=== PATIENT | male | born 1985 | race Hispanic/Latino ===

== ENCOUNTER 2018-05-19 18:47 | Emergency (ER) | payer SELFPAY | END 2018-05-19 21:44 | disposition left against medical advice (07) | LOC: ED 18:47 | DX: Z02.89 Encounter for other administrative examinations (principal); Z00.00 Encounter for general adult medical examination without abnormal findings ==

== ENCOUNTER 2018-05-19 19:14 | Emergency (ER) | payer SELFPAY | END 2018-05-19 19:19 | disposition left against medical advice (07) | LOC: EDSEX → ED 19:14 | DX: Z02.89 Encounter for other administrative examinations (principal); Z00.00 Encounter for general adult medical examination without abnormal findings ==

== ENCOUNTER 2018-05-19 19:17 | Emergency (ER) | payer SELFPAY ==
[2018-05-19 19:21] VITALS: RESP 18; BMI 23.3
[2018-05-19] MEDS ORDERED: oxyCODONE 10 mg Immediate Release Tab PO STA (19:39)
--- NOTE | 2018-05-19 20:07 | ED PDOC ---
Arrival/HPI - General Chief Complaint: Med Refill Time Seen by Provider: 05/19/18 19:25 Historian: Patient - History of Present Illness Narrative History of Present Illness (Text): 05/19/18 20:03 A 33 year old male, whose past medical history includes chronic back pain, presents to the emergency department with a complaint of back pain and a request to fill his medications. The patient reports that he is normally on 20 mg of oxycodone. He states that his PMD recently retired and his new PMD prescribed him a 30 day supply at the end of March. He states that he ran out of his medication 2 days ago. He states that he has an appointment with a pain management physician June 14. The patient denies fevers, chills, headache, dizziness, chest pain, shortness of breath, dyspnea on exertion, cough, abdominal pain, nausea, vomiting, diarrhea, neck pain, urinary/bowel changes, or any other complaint. Time/Duration: Other Symptom Onset: Sudden Symptom Course: Unchanged Activities at Onset: Rest, Light Context: Home Past Medical History - Provider Review Nursing Documentation Reviewed: Yes - Musculoskeletal/Rheumatological Hx Back Pain: Yes - Psychiatric Hx Substance Use: No - Surgical History Other/Comment: laser spine surgery - Anesthesia Hx Anesthesia: No Hx Anesthesia Reactions: No Family/Social History - Physician Review Nursing Documentation Reviewed: Yes Family/Social History: No Known Family HX Smoking Status: Unknown If Ever Smoked Hx Alcohol Use: No Hx Substance Use: No Allergies/Home Meds Allergies/Adverse Reactions: Allergies No Known Allergies Allergy (Verified 05/19/18 19:21) Review of Systems - Physician Review All systems were reviewed & negative as marked: Yes - Review of Systems Constitutional: absent: Fevers Respiratory: absent: SOB, Cough Cardiovascular: absent: Chest Pain, SCHNEIDER Gastrointestinal: absent: Abdominal Pain, Diarrhea, Nausea, Vomiting Genitourinary Male: absent: Urinary Output Changes Musculoskeletal: Back Pain. absent: Neck Pain Neurological: absent: Headache, Dizziness Physical Exam Vital Signs Reviewed: Yes Vital Signs Temp Pulse Resp BP Pulse Ox 05/19/18 19:20 98.5 F 82 18 155/95 H 99 Temperature: Afebrile Blood Pressure: Hypertensive Pulse: Regular Respiratory Rate: Normal Appearance: Positive for: Well-Appearing, Non-Toxic, Comfortable Pain Distress: None Mental Status: Positive for: Alert and Oriented X 3 Medical Decision Making ED Course and Treatment: 05/19/18 20:08 Impression: A 33 year old male presents to the emergency department with a complaint of back pain and requesting refill to his oxycodone. Plan: -- oxyCODONE -- Reassess and disposition Progress Notes: 05/19/18 20:10 Patient is in no acute distress. I have discussed the plan with the patient, who expresses understanding. Patient in agreement with plan to be discharged home. Patient is stable for discharge. Patient was instructed to follow up with physician or return if symptoms worsen or new concerning symptoms arise. Rx written for a small amount of home dose of oxycodone. [facility] records requested and reviewed, last Rx filled was on 04/19 for oxycodone 20mg 150 tabs, 30 day supply. Patient states that he finished his last tab two days ago. - Medication Orders Current Medication Orders: Discontinued Medications Oxycodone HCl (Oxycodone Immediate Release Tab) 20 mg PO STAT STA Stop: 05/19/18 19:40 - Scribe Statement The provider has reviewed the documentation as recorded by the Kelvin Alvares Provider Scribe Attestation: All medical record entries made by the Scribe were at my direction and personally dictated by me. I have reviewed the chart and agree that the record accurately reflects my personal performance of the history, physical exam, medical decision making, and the department course for this patient. I have also personally directed, reviewed, and agree with the discharge instructions and disposition. Disposition/Present on Arrival - Present on Arrival Any Indicators Present on Arrival: No History of DVT/PE: No History of Uncontrolled Diabetes: No Urinary Catheter: No History of Decub. Ulcer: No History Surgical Site Infection Following: None - Disposition Have Diagnosis and Disposition been Completed?: Yes Diagnosis: Medication refill Disposition: HOME/ ROUTINE Disposition Time: 19:57 Condition: STABLE Discharge Instructions (ExitCare): Taking Narcotics Safely Additional Instructions: SOFIA MENDOSA, thank you for letting us take care of you today. Your provider was Liliam Garcia MD and you were treated for WITHDRAWL FROM MEDS. The emergency medical care you received today was directed at your acute symptoms. If you were prescribed any medication, please fill it and take as directed. It may take several days for your symptoms to resolve. Return to the Emergency Department if your symptoms worsen, do not improve, or if you have any other problems. Please contact your doctor or call one of the physicians/clinics you have been referred to that are listed on the Patient Visit Information form that is included in your discharge packet. Bring any paperwork you were given at discharge with you along with any medications you are taking to your follow up visit. Our treatment cannot replace ongoing medical care by a primary care provider outside of the emergency department. Thank you for allowing the [facility] team to be part of your care today. If you had an X-Ray or CT scan: A Radiologist will review the ED reading if any change in treatment is needed we will contact you. If you had a blood, urine, or wound culture: It will take several days for the results, if any change in treatment is needed we will contact you. If you had an STI test: It will take 48 hours for the results. Please call after 1 week if you have not heard back. Prescriptions: RX: oxyCODONE [oxyCODONE Immediate Release Tab] 20 mg PO Q6H #6 tab Forms: [email or web address] (Lithuanian)
[2018-05-19 20:34] VITALS: BP 148/89; PULSE 85; TEMP 98.2; O2SAT 100
== END 2018-05-19 20:35 | disposition home or self-care (01) ==
LOC: ED 19:17 → MERGE 19:17 → ED 20:35
DX: Z76.0 Encounter for issue of repeat prescription (principal); M54.9 Dorsalgia, unspecified

== ENCOUNTER 2018-06-07 13:20 | Emergency (ER) | payer OTHER ==
[2018-06-07 13:40] VITALS: BMI 22.9
[2018-06-07 13:45] VITALS: RESP 18; TEMP 98.3; O2SAT 97
--- NOTE | 2018-06-07 14:40 | ED PDOC ---
Arrival/HPI - General Historian: Patient - Critical Care Narrative Critical Care (Text): 06/07/18 14:44 33 year old male with chronic back pain with radiculopathy on the right lower extremity, s/p spine surgery in 2016 and opiod dependent presents to the emergency department with persistent back pain and withrwawal symptoms of opiods after he ran out of meds last week. Patient reports diarrhea, muscle aches, insomnia, dysmorphic mood for the past few days. He reports no change in his pain pattern, still sharp, shooting to his right leg above ankle level, worsens with prolonged sitting/standing. Patient has tried NSAID in the past but failed to control hi bart. He is scheduled to see waste/materials exchange specialist on 06/14 but because of severity of pain and withdrawal symptoms, he decided to come to the emergency department . He denied fever, chills, abdominal pain, visual changes, focal neurologic symptoms, loss of sensation, chest pain, palpitation. - History of Present Illness Time/Duration: > week Symptom Onset: Gradual Symptom Course: Intermittent Quality: Throbbing Severity Level: 9 Context: Sitting, Walking, Exertion <Mihir Hodges - Last Filed: 06/07/18 14:56> <Mariia Tamayo - Last Filed: 06/22/18 10:45> - General Chief Complaint: Med Refill Time Seen by Provider: 06/07/18 14:04 Past Medical History - Provider Review Nursing Documentation Reviewed: Yes - Infectious Disease Hx of Infectious Diseases: None - Musculoskeletal/Rheumatological Hx Back Pain: Yes Other/Comment: chronic back & leg pain - Psychiatric Hx Substance Use: No - Surgical History Hx Orthopedic Surgery: Yes (Back surgery in 2016) Other/Comment: laser spine surgery - Anesthesia Hx Anesthesia: Yes Hx Anesthesia Reactions: No <Mihir Hodges - Last Filed: 06/07/18 14:56> Family/Social History - Physician Review Nursing Documentation Reviewed: Yes Smoking Status: Unknown If Ever Smoked Hx Alcohol Use: No Hx Substance Use: No <Mihir Hodges - Last Filed: 06/07/18 14:56> Family/Social History: Unknown Family HX <Mariia Tamayo - Last Filed: 06/22/18 10:45> Allergies/Home Meds <Mihir Hodges - Last Filed: 06/07/18 14:56> <Mariia Tamayo - Last Filed: 06/22/18 10:45> Allergies/Adverse Reactions: Allergies No Known Allergies Allergy (Verified 05/22/18 08:39) Review of Systems - Review of Systems Constitutional: Normal Eyes: Normal ENT: Normal Respiratory: Normal Cardiovascular: Normal Gastrointestinal: Diarrhea Genitourinary Male: Normal Musculoskeletal: Back Pain, Myalgias Skin: Normal Neurological: Normal Endocrine: Normal Hemo/Lymphatic: Normal Psychiatric: Normal <TracieMihir - Last Filed: 06/07/18 14:56> Physical Exam Vital Signs Reviewed: Yes Vital Signs Temp Pulse Resp BP Pulse Ox 06/07/18 13:44 98.3 F 75 18 139/87 97 Temperature: Afebrile Blood Pressure: Normal Pulse: Regular Respiratory Rate: Normal Appearance: Positive for: Well-Appearing, Non-Toxic, Comfortable Pain Distress: Moderate Mental Status: Positive for: Alert and Oriented X 3 - Systems Exam Head: Present: Atraumatic, Normocephalic Pupils: Present: PERRL Extroacular Muscles: Present: EOMI Conjunctiva: Present: Normal Mouth: Present: Moist Mucous Membranes Pharnyx: Present: Normal Nose (External): Present: Atraumatic Neck: Present: Normal Range of Motion Respiratory/Chest: Present: Clear to Auscultation, Good Air Exchange Cardiovascular: Present: Regular Rate and Rhythm, Normal S1, S2. No: Rub, Gallop Abdomen: Present: Normal Bowel Sounds. No: Tenderness, Distention, Guarding Back: Present: Normal Inspection Upper Extremity: Present: Normal Inspection. No: Cyanosis, Edema Lower Extremity: Present: Normal Inspection, NORMAL PULSES, Neurovascularly Intact, Other (positive straight leg test on the right at 60 degrees). No: Temperature Abnormalties Neurological: Present: GCS=15, CN II-XII Intact, Speech Normal Skin: Present: Warm, Dry <TracieMihir - Last Filed: 06/07/18 14:56> Vital Signs Temp Pulse Resp BP Pulse Ox 06/07/18 16:13 98.3 F 71 18 137/75 97 06/07/18 15:11 71 18 137/75 97 06/07/18 13:44 98.3 F 75 18 139/87 97 <Mariia Tamayo - Last Filed: 06/22/18 10:45> Medical Decision Making ED Course and Treatment: 06/22/18 10:41 Patient exhibits no tachycardia, tremors, nausea, acute pain, or acute hypertension. Not diaphoretic or somnolent. He denies any acute change in character or location of pain. He states he has follow-up with pain management and upcoming appointment. RISKS OF INAPPROPRIATE USE OF NARCOTICS WELL POTENTIAL FOR ADDICTION AND SIDE EFFECTS reviewed with patient. He has been advised that he must follow-up with his pain management appointment as he has schedules. I have advised nonnarcotic medication alternatives to patient. I have advised him of risks of continued opiod use without follow-up. He confirms prior injury,. Neuro exam is intact. No bowel or bladder incontinence. Ambulatory. No fever or chills. No midline erythema or neuro deficits. - Medication Orders Current Medication Orders: Discontinued Medications Oxycodone HCl (Oxycodone Immediate Release Tab) 20 mg PO STAT STA Stop: 06/07/18 15:03 Last Admin: 06/07/18 16:10 Dose: 20 mg [facility] Pain Assessment Document 06/07/18 16:10 [facility] (Rec: 06/07/18 16:11 [id number] Pain Reassessment Is this a pain reassessment? No Sleep Is patient sleeping during reassessment? No Presence of Pain Presence of Pain Yes Pain Scale Used Protocol: PSCALES Pain Scale Used Numeric Location Left, Right or Bilateral Right Pain Location Body Site Leg Description Description Constant Intensity of Pain at present 10 Aggravating Factors ADL's <Mariia Tamayo - Last Filed: 06/22/18 10:45> Disposition/Present on Arrival - Present on Arrival Any Indicators Present on Arrival: No History of DVT/PE: No History of Uncontrolled Diabetes: No Urinary Catheter: No History of Decub. Ulcer: No History Surgical Site Infection Following: None <Mihir Hodges - Last Filed: 06/07/18 14:56> - Disposition Have Diagnosis and Disposition been Completed?: Yes Disposition Time: 17:00 Patient Plan: Discharge <Mariia Tamayo - Last Filed: 06/22/18 10:45> - Disposition Diagnosis: Chronic back pain Disposition: HOME/ ROUTINE Condition: STABLE Discharge Instructions (ExitCare): Low Back Pain (DC) Print Language: POLISH Additional Instructions: Risk of addiction and side effects of prescribed medication have been reviewed with you. Follow-up with pain management as scheduled. For any change in character or location of pain, get rechecked. For any shakiness, tremors, chest pain, shortness of breath, nausea or vomiting, unsteadiness, get rechecked. Prescriptions: oxyCODONE [oxyCODONE Immediate Release Tab] 20 mg PO Q6 #6 tab Referrals: Fred Meek MD [Staff Provider] - Follow up with primary Forms: [employer] (Malagasy)
[2018-06-07] MEDS ORDERED: oxyCODONE 20 mg Immediate Release Tab PO STA (15:02)
[2018-06-07 15:12] VITALS: BP 137/75; PULSE 71
== END 2018-06-07 16:13 | disposition home or self-care (01) ==
LOC: ED 13:20
DX: G89.29 Other chronic pain (principal); M54.9 Dorsalgia, unspecified

== ENCOUNTER 2018-06-12 13:53 | Emergency (ER) | payer SELFPAY ==
[2018-06-12 13:53] VITALS: BMI 22.9
[2018-06-12 14:39] VITALS: BP 130/90; PULSE 82; RESP 20; TEMP 98.3; O2SAT 98
[2018-06-12] MEDS ORDERED: Oxycodone/Acetaminophen 5/325 mg Tab PO STA (15:30)
--- NOTE | 2018-06-12 15:30 | ED PDOC ---
Arrival/HPI - General Chief Complaint: Lower Extremity Problem/Injury Time Seen by Provider: 06/12/18 14:09 Historian: Patient - History of Present Illness Narrative History of Present Illness (Text): 06/12/18 15:23 33yo male with pmhx of chronic back pain secondary to herniated disc who present to ED requesting Oxycodone. Patient states she gets chronic pain from his lower back to his legs and takes Oxycodone for the pain. states he was given prescription for Oxycodone here twice and it only usually last him for a day. States he plan to see a pain management later this week. He denies saddle anesthesia, focal weakness, urinary/fecal incontinence, abdominal pain, urinary symptoms, fever, nausea, any other complaint. Past Medical History - Provider Review Nursing Documentation Reviewed: Yes - Infectious Disease Hx of Infectious Diseases: None - Musculoskeletal/Rheumatological Hx Back Pain: Yes Hx Herniated Disk: Yes Other/Comment: chronic back & leg pain - Psychiatric Hx Substance Use: No - Surgical History Hx Orthopedic Surgery: Yes (Back surgery in 2016) Other/Comment: laser spine surgery - Anesthesia Hx Anesthesia: Yes Hx Anesthesia Reactions: No Family/Social History - Physician Review Nursing Documentation Reviewed: Yes Family/Social History: Unknown Family HX Smoking Status: Unknown If Ever Smoked Hx Alcohol Use: No Hx Substance Use: No Allergies/Home Meds Allergies/Adverse Reactions: Allergies No Known Allergies Allergy (Verified 05/22/18 08:39) Review of Systems - Physician Review All systems were reviewed & negative as marked: Yes - Review of Systems Constitutional: Normal Eyes: Normal ENT: Normal Respiratory: Normal Cardiovascular: Normal Gastrointestinal: Normal Genitourinary Male: Normal Musculoskeletal: Back Pain Skin: Normal Neurological: Normal Endocrine: Normal Hemo/Lymphatic: Normal Psychiatric: Normal Physical Exam Vital Signs Reviewed: Yes Vital Signs Temp Pulse Resp BP Pulse Ox 06/12/18 14:37 98.3 F 82 20 130/90 98 Temperature: Afebrile Blood Pressure: Normal Pulse: Regular Respiratory Rate: Normal Appearance: Positive for: Well-Appearing, Non-Toxic, Comfortable Pain Distress: None Mental Status: Positive for: Alert and Oriented X 3 - Systems Exam Head: Present: Atraumatic, Normocephalic Pupils: Present: PERRL Extroacular Muscles: Present: EOMI Conjunctiva: Present: Normal Mouth: Present: Moist Mucous Membranes Neck: Present: Normal Range of Motion Respiratory/Chest: Present: Clear to Auscultation, Good Air Exchange. No: Respiratory Distress, Accessory Muscle Use Cardiovascular: Present: Regular Rate and Rhythm, Normal S1, S2. No: Murmurs Abdomen: No: Tenderness, Distention, Peritoneal Signs Back: Present: Paraspinal Tenderness. No: Midline Tenderness, Pain with Leg Raise Upper Extremity: Present: Normal Inspection. No: Cyanosis, Edema Lower Extremity: Present: Normal Inspection. No: Edema Neurological: Present: GCS=15, CN II-XII Intact, Speech Normal Skin: Present: Warm, Dry, Normal Color. No: Rashes Psychiatric: Present: Alert, Oriented x 3, Normal Insight, Normal Concentration Medical Decision Making ED Course and Treatment: 06/12/18 16:26 33yo male who present to ED requesting pain medication for chronic back pain. He was ambulatory and neurologically intact. He was treated with Percocet and Toradol in ED. He exhibited drug seeking behavior. He was strongly advised to f/u with a pain management for his pain medication. Advised that he will not get prescription of Oxycodone for his chronic pain in ED. He was referred to a pain management. Disposition/Present on Arrival - Present on Arrival Any Indicators Present on Arrival: No History of DVT/PE: No History of Uncontrolled Diabetes: No Urinary Catheter: No History of Decub. Ulcer: No History Surgical Site Infection Following: None - Disposition Have Diagnosis and Disposition been Completed?: Yes Diagnosis: Chronic back pain Disposition: HOME/ ROUTINE Disposition Time: 15:35 Patient Plan: Discharge Patient Problems: Current Active Problems Problem Status Onset Chronic back pain Acute Condition: STABLE Discharge Instructions (ExitCare): Low Back Pain in Adults Additional Instructions: Follow up with a pain management Return to ED for new complaint Prescriptions: Naproxen [Naprosyn] 500 mg PO BID #20 tab Referrals: Fred Meek MD [Staff Provider] - Follow up with primary Forms: [employer] (Lao)
== END 2018-06-12 16:02 | disposition home or self-care (01) ==
LOC: ED 13:53
DX: G89.29 Other chronic pain (principal); M54.9 Dorsalgia, unspecified
CPT/HCPCS: 96372; 99283; J1885